=== PATIENT | female | born 1960 | race Caucasian/White ===

== ENCOUNTER 2017-12-23 11:07 | Emergency (ER) | payer OTHER ==
[~2017-12-23] VITALS: Ht 167.6 cm; Wt 68.0 kg
[2017-12-23] MEDS ORDERED: LEVOXYL88 MCG PO (11:14)
[2017-12-23] MEDS ORDERED: ZOFRAN4 MG PO (12:33)
[2017-12-23] MEDS ORDERED: HYDROCODON-ACE1 EAC7 PO (12:33)
[2017-12-23] MEDS ORDERED: KEFLEX500 M1 PO (12:35)
[2017-12-23 12:57] VITALS: BP 105/59
== END 2017-12-23 12:59 | disposition home or self-care (01) ==
LOC: M.ERS 11:07
DX: S22.41XA Multiple fractures of ribs, right side, initial encounter for closed fracture (principal); S60.221A Contusion of right hand, initial encounter; W01.0XXA Fall on same level from slipping, tripping and stumbling without subsequent striking against object, initial encounter; Y93.89 Activity, other specified; Y92.89 Other specified places as the place of occurrence of the external cause; Y99.8 Other external cause status